=== PATIENT | female | born 1970 | race Hispanic/Latino ===

== ENCOUNTER 2018-09-16 10:21 | Emergency (ER) | payer MEDICAID ==
[2018-09-16 10:32] VITALS: BP 164/94; PULSE 95; RESP 18; TEMP 98.2; O2SAT 98; BMI 32.0
--- NOTE | 2018-09-16 11:46 | C.PDOC ---
History Of Present Illness 48 year old female presents to ED with complaint of left foot pain for months. Patient states that she has PSHx of foot surgery from 2 years ago for a shredded ligament on the left foot and bunion surgery. Patient states that she had a black blister on the area where her permanent stitches were placed that she popped and had some pus come out. Patient also complains of as callous to the area and when she pressed it a "white head" came out. Patient states that she is unable to bear weight on the foot. She denies fever, weakness, numbness, and swelling. Time Seen by Provider: 09/16/18 11:12 Chief Complaint (Nursing): Lower Extremity Problem/Injury History Per: Patient History/Exam Limitations: no limitations Onset/Duration Of Symptoms: Other (months) Current Symptoms Are (Timing): Still Present - Ankle/Foot Currently Unable To: Bear Weight Past Medical History Reviewed: Historical Data, Nursing Documentation, Vital Signs Vital Signs: Last Vital Signs Temp 98.2 F 09/16/18 10:31 Pulse 95 H 09/16/18 10:31 Resp 18 09/16/18 10:31 BP 164/94 H 09/16/18 10:31 Pulse Ox 98 09/16/18 10:31 Primary Care Provider: Morgan Amaya - Medical History PMH: Anxiety, Gall Bladder Disease, HTN, Kidney Stones, Chronic Kidney Disease Surgical History: Cholecystectomy Other Surgeries: Surgery for shredded ligament to the left foot and bunion surgery. - [facility] Procedures CORONARY ARTERIOGRAM NEC (01/18/15) LEFT HEART CARDIAC CATH (01/18/15) LT HEART ANGIOCARDIOGRAM (01/18/15) Family History: States: Unknown Family Hx - Social History Hx Alcohol Use: Yes Hx Substance Use: No - Immunization History Hx Tetanus Toxoid Vaccination: No Hx Influenza Vaccination: No Hx Pneumococcal Vaccination: No Review Of Systems Constitutional: Negative for: Fever, Chills, Weakness Musculoskeletal: Positive for: Foot Pain (left foot pain with drainage coming from blister and pus coming from callous; sutures present from previous surgery) Skin: Negative for: Rash, Lesions Neurological: Negative for: Weakness, Numbness Physical Exam - Physical Exam Appears: Well, Non-toxic, No Acute Distress Skin: Normal Color, Warm, Dry, No Rash Head: Atraumatic, Normacephalic Eye(s): bilateral: Normal Inspection Oral Mucosa: Moist Neck: Normal ROM, Supple Chest: Symmetrical, No Deformity Cardiovascular: Rhythm Regular, No Murmur Respiratory: No Accessory Muscle Use Extremity: Capillary Refill (<2 seconds), Other (1 cm area with swelling and erythema on the plantar aspect of the left foot between the 1st and 2nd metatarsel and 1st and 2nd toes; wound present with small area of drainage) Extremity: Left: Unable To Bear Weight Pulses: Left Dorsalis Pedis: Normal, Right Dorsalis Pedis: Normal Neurological/Psych: Oriented x3, Normal Speech, Normal Cognition ED Course And Treatment - Laboratory Results Result Diagrams: 09/16/18 12:27 09/16/18 12:27 O2 Sat by Pulse Oximetry: 98 (in RA) Pulse Ox Interpretation: Normal - Other Rad Left foot X-ray X-Ray: Interpreted by Me, Viewed By Me Interpretation: IMPRESSION: 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 Postsurgical changes in the distal 1st metatarsal. Medical Decision Making Medical Decision Making: Initial Plan: Motrin PO Tramadol PO Left Foot X-ray 1214: Spoke with podiatry resident. Agreed to come and see patient. They state that the xrays are normal and the wound does not require antibiotics. Patient has an appointment to see her Podiartist within 1-2 days and will follow up then. Disposition - Disposition Referrals: Arielle,Chaparro, POONAMM [Non-Staff] - Disposition: HOME/ ROUTINE Disposition Time: 13:39 Condition: STABLE Additional Instructions: FOLLOW UP WITH YOUR TEST DATA DEVELOPER WITHIN 1-2 DAYS WITHOUT FAIL. RETURN TO THE ED IF WORSENED. Instructions: Samir (DC) Forms: [email or web address] (Trinidadian) - Clinical Impression Clinical Impression: Samir - PA / PSYCHOLOGIST ENGINEERING / Resident Statement MD/DO has reviewed & agrees with the documentation as recorded. (Florencia Francisco) - Scribe Statement The provider has reviewed the documentation as recorded by the Scribe (Florencia Francisco)
--- NOTE | 2018-09-16 12:08 | RAD ---
Date of service: 09/16/2018 PROCEDURE: Left Foot Radiographs. HISTORY: swelling and pain betweek the 1st 2nd Metatarsal COMPARISON: None. TECHNIQUE: 3 views obtained. FINDINGS: BONES: Status post osteotomy in the distal 1st metatarsal with a metallic screw in place. There is no acute fracture or bone destruction. Bone alignment is normal. There is a large plantar calcaneal spur. JOINTS: There is moderate degenerative osteoarthrosis in the 1st and 2nd metatarsophalangeal joints with reduced joint spaces and marginal spurring. There is mild medial subluxation of the head of the 2nd metatarsal. The remaining joint spaces are preserved. SOFT TISSUES: Normal. OTHER FINDINGS: None. 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 Postsurgical changes in the distal 1st metatarsal.
[2018-09-16 12:30] LABS: BASO # 0.1 K/uL (0.0-0.2); BASO % 0.9 % (0.0-2.0); EOS # 0.1 K/uL (0.0-0.7); EOS % 0.8 % (0.0-4.0); HEMOGLOBIN 15.2 g/dL (11.0-16.0); LYMPH % 20.4 % (20.0-40.0); MEAN CORPUSCULAR HGB CONC 34.4 g/dL (33.0-37.0); MEAN PLATELET VOLUME 8.2 fL (7.2-11.7); MONO # 0.7 K/uL (0.0-0.8); NEUT # 6.9 K/uL (1.8-7.0); NEUT % 70.9 % (50.0-75.0); RBC 4.74 Mil/uL (3.80-5.20); RED CELL DISTRIBUTION WIDTH 14.1 % (11.5-14.5); WHITE BLOOD COUNT 9.7 K/uL (4.8-10.8)
[2018-09-16 12:42] LABS: ALB/GLOB RATIO 1.3 (1.0-2.1); ALBUMIN 4.1 g/dL (3.5-5.0); ALT/SGPT 11 U/L (9-52); AST/SGOT 22 U/L (14-36); BLOOD UREA NITROGEN 13 mg/dL (7-17); CALCIUM 9.7 mg/dl (8.6-10.4); GFR NON-AFRICAN AMERICAN > 60
--- NOTE | 2018-09-16 18:53 | CP.PCM.CON ---
History of Present Illness - History of Present Illness History of Present Illness: Podiatry Consult Note - Dr. Weaver 48F seen and evaluated in ED with complaints of left foot pain s/p surgery 2 years ago by outside gathering machine feeder Dr. Flor. Patient states 2 years ago her gathering machine feeder fixed her bunion as well as her dislocated 2nd digit by screw fixation and permanent sutures, respectively. Patient states she was healing well until approximately 3 months ago began to develop pain on the ball of her foot where one of the incisions were created. Patient states last week she noticed a black blister forming around the surgical site along with associated drainage she believed was pus. Patient states she drained the fluid which provided relief however still complaints of pain along that site with pressure. Patient states she was not able to see Dr. Flor so presented to ED for further evaluation. At present, patient reports moderate pain around surgical site. Denies taking any medication for relief of symptoms. Denies recent n/v/f/d/c/sob/riley/cp. Offers no other complaints. Review of Systems - Review of Systems All systems: reviewed and no additional remarkable complaints except (as per HPI) Past Patient History - Past Medical History & Family History Past Medical History?: Yes - Past Social History Smoking Status: Smoker Currrent Status Unknown - CARDIAC Hx Hypertension: Yes - PULMONARY Hx Respiratory Disorders: Yes Hx Pulmonary Edema: Yes (POST CHILDHOOD 4 YRS AGO) - NEUROLOGICAL Hx Neurological Disorder: No - HEENT Hx HEENT Problems: No - RENAL Hx Chronic Kidney Disease: Yes Hx Kidney Stones: Yes - ENDOCRINE/METABOLIC Hx Endocrine Disorders: No - HEMATOLOGICAL/ONCOLOGICAL Hx Blood Disorders: No - INTEGUMENTARY Hx Dermatological Problems: No - MUSCULOSKELETAL/RHEUMATOLOGICAL Hx Musculoskeletal Disorders: Yes Hx Osteoarthritis: Yes - GASTROINTESTINAL Hx Gall Bladder Disease: Yes - GENITOURINARY/GYNECOLOGICAL Hx Genitourinary Disorders: No - PSYCHIATRIC Hx Anxiety: Yes Hx Substance Use: No - SURGICAL HISTORY Hx Cholecystectomy: Yes - ANESTHESIA Hx Anesthesia: Yes Hx Anesthesia Reactions: Yes (pulmonary edema during csection) Hx Malignant Hyperthermia: No Meds Allergies/Adverse Reactions: Allergies Allergy/AdvReac Type Severity Reaction Status Date / Time Sulfa (Sulfonamide Allergy RASH Verified 09/16/18 10:31 Antibiotics) Physical Exam - Constitutional Appears: Non-toxic, No Acute Distress - Extremities Exam Additional comments: LLE focused: VASC: DP and PT pulses palpable 2/4. CFT <3 seconds to digits. Temperature gradient warm to warm. No increase in warmth noted to forefoot. No edema noted. NEURO: Light and protective sensation intact. DERM: Healed pinpoint blister noted sub 2nd met head with surrounding hyperkeratosis. Well healed cicatrix noted to dorsum of 1st metatarsal. ORTHO: Pain on palpation noted to hyperkeratotic lesion. No gross deformities noted - Neurological Exam Neurological exam: Alert, Oriented x3 - Psychiatric Exam Psychiatric exam: Normal Affect, Normal Mood Results - Vital Signs Recent Vital Signs: Last Vital Signs Temp 98.2 F 09/16/18 10:31 Pulse 95 H 09/16/18 10:31 Resp 18 09/16/18 10:31 BP 164/94 H 09/16/18 10:31 Pulse Ox 98 09/16/18 13:53 - Labs Result Diagrams: 09/16/18 12:27 09/16/18 12:27 Labs: Laboratory Results - last 24 hr 09/16/18 09/16/18 12:27 12:27 WBC 9.7 RBC 4.74 Hgb 15.2 Hct 44.1 MCV 93.0 MCH 32.0 H MCHC 34.4 RDW 14.1 Plt Count 245 MPV 8.2 Neut % (Auto) 70.9 Lymph % (Auto) 20.4 [place] % (Auto) 7.0 Eos % (Auto) 0.8 Baso % (Auto) 0.9 Neut # (Auto) 6.9 Lymph # (Auto) 2.0 [place] # (Auto) 0.7 Eos # (Auto) 0.1 Baso # (Auto) 0.1 Sodium 139 Potassium 4.3 Chloride 104 Carbon Dioxide 26 Anion Gap 13 BUN 13 Creatinine 0.6 L Est GFR ( Amer) > 60 Est GFR (Non-Af Amer) > 60 Random Glucose 88 D Calcium 9.7 Total Bilirubin 0.7 AST 22 ALT 11 Alkaline Phosphatase 161 H Total Protein 7.3 Albumin 4.1 Globulin 3.1 Albumin/Globulin Ratio 1.3 Assessment & Plan - Assessment and Plan (Free Text) Assessment: 48F with painful callus s/p plantar plate repair Plan: Patient seen and evaluated Left XR reviewed: s/p bunion correction identified with no breakage or backing out of hardware; s/p 2nd MPJ plantar plate repair; no signs of infection present CBC ordered, WBC WNL Discussed with patient pain likely due to callus/scar tissue formation surrounding plantar surgical site vs. foreign body that body spontaneously rejected. No suspicion for active infection at this time Recommend offloading horseshoe pads Recommend OTC Aleve PRN pain Patient to follow up in the podiatry clinic within 1 week or follow up with outside gathering machine feeder Dr. Chacho Mcdowell for dc per podiatry Thank you for the consult
== END 2018-09-16 13:45 | disposition home or self-care (01) ==
LOC: C.ER 10:21
DX: M21.612 Bunion of left foot (principal); I12.9 Hypertensive chronic kidney disease with stage 1 through stage 4 chronic kidney disease, or unspecified chronic kidney disease; N18.9 Chronic kidney disease, unspecified

== ENCOUNTER 2018-09-20 07:53 | Emergency (ER) | payer MEDICAID ==
[2018-09-20 07:53] VITALS: BMI 34.7
[2018-09-20 08:10] VITALS: RESP 18
--- NOTE | 2018-09-20 08:14 | C.PDOC ---
History Of Present Illness 48 year old female presents to ED with complaint of increasing pain and swelling to the bottom her left foot for the past 5 days. Patient was seen 09/16 for the same symptoms and is s/p podiatry evaluation. Patient states now she has increased pain and swelling to the area. Patient was a podiatry appointment scheduled for 09/21 but she states the pain "was too unbearable." Patient denies fever, chills, discharge from the area. INCREASING PAIN, SWELLING BOTTOM L FOOT X 5 DAYS. SEEN 09/16 FOR SAME S/P PODIATRY EVAL. PS NOW W INCREASED PAIN AND SWELLING TO AREA. PENDING PODIATRY APPT 09/21 BUT "WAS TOO UNBEARABLE". NO DC, FEVER. EXAM NONTOXIC EXT AROM WO DIFF ATRAUM NO DEFORM SKIN +CALLUS BOTTOM L FOOD W LOCAL TEND, INCR SWELLING CENTRAL SCAB. NO DC. NO ERYTHEMA NEURO INTACT MDM OLD RECORDS REVIEWED, XRAY NO ACUTE FINDINGS LABS WNL. WORSENING PAIN. PODIATRY CONSULT Time Seen by Provider: 09/20/18 08:12 Chief Complaint (Nursing): Lower Extremity Problem/Injury History Per: Patient History/Exam Limitations: no limitations Onset/Duration Of Symptoms: Days (5), Worse Since Current Symptoms Are (Timing): Still Present Past Medical History Reviewed: Historical Data, Nursing Documentation, Vital Signs Vital Signs: Last Vital Signs Temp 98 F 09/20/18 08:09 Pulse 77 09/20/18 08:09 Resp 18 09/20/18 08:09 BP 166/77 H 09/20/18 08:09 Pulse Ox 95 09/20/18 08:09 Primary Care Provider: Morgan Amaya - Medical History PMH: Anxiety, Gall Bladder Disease, HTN, Kidney Stones, Chronic Kidney Disease Surgical History: Cholecystectomy - [facility] Procedures CORONARY ARTERIOGRAM NEC (01/18/15) LEFT HEART CARDIAC CATH (01/18/15) LT HEART ANGIOCARDIOGRAM (01/18/15) Family History: States: Unknown Family Hx - Social History Hx Alcohol Use: Yes Hx Substance Use: No - Immunization History Hx Tetanus Toxoid Vaccination: No Hx Influenza Vaccination: No Hx Pneumococcal Vaccination: No Review Of Systems Except As Marked, All Systems Reviewed And Found Negative. Musculoskeletal: Positive for: Foot Pain (pain and swelling to the left foot) Physical Exam - Physical Exam Appears: Non-toxic, No Acute Distress Skin: Normal Color, Warm, Dry, Other (+ callous to the bottom left foot with localized tenderness, increased swelling, central scab, no discharge, no erythema ) Head: Atraumatic, Normacephalic Eye(s): bilateral: Normal Inspection Neck: Normal ROM, Supple Chest: Symmetrical, No Deformity Cardiovascular: Rhythm Regular, No Murmur Respiratory: No Accessory Muscle Use, No Rales, No Wheezing, Other (NARD) Gastrointestinal/Abdominal: Soft, No Tenderness Extremity: No Calf Tenderness, Capillary Refill (<2 seconds) Extremity: Bilateral: Atraumatic (without difficulty), Normal Color And Temperature, Normal ROM Pulses: Left Radial: Normal, Right Radial: Normal, Left Dorsalis Pedis: Normal, Right Dorsalis Pedis: Normal Neurological/Psych: Oriented x3, Normal Speech, Normal Cognition, Normal Motor, Normal Sensation Gait: Steady ED Course And Treatment O2 Sat by Pulse Oximetry: 95 (in RA) Pulse Ox Interpretation: Normal - CT Scan/US Left lower extremity US Other Rad Studies (CT/US): Read By Radiologist CT/US Interpretation: IMPRESSION: No sonographic evidence of abscess. Progress Note: Left lower extremity US ordered for patient. Patient given Motrin and Tylenol. Progress - Re-Evaluation Re-evaluation Note: 09/20/18 08:39 D/W PODIATRY RESIDENT WILL EVAL IN ER - Data Reviewed Data Reviewed: Old records Medical Decision Making Medical Decision Making: Old records reviewed. X-ray shows no acute findings. Labs within normal limits. Patient continues to complain of worsening pain. Podiatry consult called. Discussed case with Podiatry tongue and groove machine operator (Dr. Weaver). Disposition Counseled Patient/Family Regarding: Studies Performed, Diagnosis, Need For Followup, Rx Given - Disposition Referrals: [facility] [Outside] [facility] [Outside] Disposition: HOME/ ROUTINE Disposition Time: 12:39 Condition: IMPROVED Additional Instructions: FOLLOW UP PODIATRY CLINIC INSTRUCTED Prescriptions: Cephalexin [cephalexin] 500 mg PO BID #14 cap Mupirocin 2% Ointment [Bactroban 2%] 22 gm TOP TID #1 tube Instructions: Boil (DC) Forms: [employer] (French) - Clinical Impression Clinical Impression: Abscess - Scribe Statement The provider has reviewed the documentation as recorded by the Scribe (Florencia Francisco) All medical record entries made by the Scribe were at my direction and personally dictated by me. I have reviewed the chart and agree that the record accurately reflects my personal performance of the history, physical exam, medical decision making, and the department course for this patient. I have also personally directed, reviewed, and agree with the discharge instructions and disposition.
--- NOTE | 2018-09-20 09:15 | CP.PCM.CON ---
History of Present Illness - History of Present Illness History of Present Illness: Podiatry Consult Note - Dr. Weaver 48F PMHx HTN seen and evaluated in ED with complaints of left foot pain s/p surgery 2 years ago by outside sewage screen operator Dr. Flor. Patient states 2 years ago her sewage screen operator fixed her bunion as well as her dislocated 2nd MPJ. Patient states 1 year ago she discussed with her sewage screen operator plans for revisional surgery to plantar plate as she was developing discomfort her doctor believes was from increased scar tissue. Patient states pain from surgical site disappeared until 3 months ago which began gradual pain along the bottom of her foot around the surgery site. Patient states last week she noticed a blister developing along with some drainage. Patient was seen and evaluated at ED last Wednesday for further evaluation, and did not find further drainage. Patient states she spent the weekend active, walking outside with family, and was unable to rest her left foot after ED visit. Patient states she has an appointment scheduled with her doctor tomorrow but yesterday developed severe 10/10 pain and was unable to ambulate so presented to ED again for evaluation. Tylenol and Ibuprofen given in ED with no relief of symptoms. Denies recent nausea, vomiting, fever, chills, shortness of breath, headache, or chest pain. Offers no other complaints. Review of Systems - Review of Systems All systems: reviewed and no additional remarkable complaints except (as per HPI) Past Patient History - Infectious Disease Hx of Infectious Diseases: None - Past Medical History & Family History Past Medical History?: Yes - Past Social History Smoking Status: Light Smoker < 10 Cigarettes Daily - CARDIAC Hx Hypertension: Yes - PULMONARY Hx Respiratory Disorders: Yes Hx Pulmonary Edema: Yes (POST CHILDHOOD 4 YRS AGO) - NEUROLOGICAL Hx Neurological Disorder: No - HEENT Hx HEENT Problems: No - RENAL Hx Chronic Kidney Disease: Yes Hx Kidney Stones: Yes - ENDOCRINE/METABOLIC Hx Endocrine Disorders: No - HEMATOLOGICAL/ONCOLOGICAL Hx Blood Disorders: No - INTEGUMENTARY Hx Dermatological Problems: No - MUSCULOSKELETAL/RHEUMATOLOGICAL Hx Musculoskeletal Disorders: Yes Hx Osteoarthritis: Yes - GASTROINTESTINAL Hx Gall Bladder Disease: Yes - GENITOURINARY/GYNECOLOGICAL Hx Genitourinary Disorders: No - PSYCHIATRIC Hx Anxiety: Yes Hx Substance Use: No - SURGICAL HISTORY Hx Cholecystectomy: Yes - ANESTHESIA Hx Anesthesia: Yes Hx Anesthesia Reactions: Yes (pulmonary edema during csection) Hx Malignant Hyperthermia: No Meds Home Medications: Home Medication List Medication Instructions Recorded Confirmed Type Cephalexin [cephalexin] 500 mg PO BID #14 cap 09/20/18 Rx Mupirocin 2% Ointment [Bactroban 22 gm TOP TID #1 tube 09/20/18 Rx 2%] Allergies/Adverse Reactions: Allergies Allergy/AdvReac Type Severity Reaction Status Date / Time Sulfa (Sulfonamide Allergy RASH Verified 09/20/18 08:04 Antibiotics) Physical Exam - Constitutional Appears: Non-toxic, No Acute Distress - Extremities Exam Additional comments: LLE focused: VASC: DP and PT pulses palpable 2/4. CFT <3 seconds to digits. Temperature gradient warm to warm, mild increase in warmth noted periwound. Mild nonpitting edema noted periwound NEURO: Light and protective sensation intact. DERM: Hyperkeratotic lesions sub 2nd met head with surrounding erythema - upon debridement noted to have a full thickness wound measuring approximately 0.5 x 0.5 x 0.3 cm with 100% granular base and 0.5cc purulence able to be expressed; no malodor; negative probe to bone. Well healed cicatrix noted to dorsum of 1st metatarsal. ORTHO: Pain on palpation noted to hyperkeratotic lesion. No gross deformities noted - Neurological Exam Neurological exam: Alert, Oriented x3 - Psychiatric Exam Psychiatric exam: Normal Affect, Normal Mood Results - Vital Signs Recent Vital Signs: Last Vital Signs Temp 98 F 09/20/18 08:09 Pulse 77 09/20/18 08:09 Resp 18 09/20/18 08:09 BP 166/77 H 09/20/18 08:09 Pulse Ox 95 09/20/18 09:12 Assessment & Plan - Assessment and Plan (Free Text) Assessment: 48F with localized abscess sub 2nd metatarsal head s/p plantar plate repair Plan: Patient seen and evaluated Discussed with attending, Dr. Owen Sheppard XR reviewed (09/16): s/p bunion correction identified with no breakage or backing out of hardware; s/p 2nd MPJ plantar plate repair; no signs of infection present VSS, WBC(09/16)9.7 LLE US negative for foreign body Hyperkeratotic lesion sharply pared with a #15 blade without incident, following debridement bedside incision and drainage performed - 0.5cc purulence expressed -Wound culture taken Recommend Keflex PO TID x7 days Recommend offloading horseshoe pads Surgical shoe given in ED Activity: PWB to left heel Patient to follow up in the podiatry clinic within 1 week or follow up with outside sewage screen operator Dr. Chacho Mcdowell for dc per podiatry Thank you for the consult
[2018-09-20 10:41] VITALS: TEMP 97.9
[2018-09-20] MEDS ORDERED: Morphine 4 MG/ML VIAL ONE (12:02)
--- NOTE | 2018-09-20 12:45 | US ---
Date of service: 09/20/2018 PROCEDURE: Ultrasound left lower extremity HISTORY: L FOOT SWELLING R/O FB/ABSCESS COMPARISON: Not available TECHNIQUE: Ultrasound examination of the left foot was performed in the area of concern along the plantar aspect of the foot, utilizing a curved linear array transducer. FINDINGS: In the area of concern along the plantar aspect of the foot, there is no solid mass or fluid collection identified. IMPRESSION: No sonographic evidence of abscess.
[2018-09-20 13:18] VITALS: BP 148/75; PULSE 69
[2018-09-20 13:30] VITALS: O2SAT 95
== END 2018-09-20 13:20 | disposition home or self-care (01) ==
LOC: C.ER 07:53
DX: L02.612 Cutaneous abscess of left foot (principal)
CPT/HCPCS: 10060; 76881; 87070; 87181; 96372; 99284; J2270